=== PATIENT | male | born 1940 | race Caucasian/White ===

== ENCOUNTER → 2018-05-29 12:29 | Outpatient (CLI) | payer MEDICARE, OTHER, SELFPAY ==
--- NOTE | 2018-05-29 | DI.RAD.S_ITS ---
PROCEDURE: XR LUMBAR SPINE 2-3V INDICATIONS: RIGHT SHOULDER/BACK PAIN TECHNIQUE: Pre-views of the lumbar spine were acquired. COMPARISON: [facility], CR, L-SPINE 2-3 VIEWS, 11/17/2013, 15:38. [facility], CR, L-SPINE 2-3 VIEWS, 02/07/2011, 16:24. FINDINGS: Bones: 5 [id number] vertebrae are present. There is mildly levoscoliotic bony alignment. No vertebral body compression fractures. No suspicious bony lesions. Note is made of a moderate degree of degenerative disc height reduction at L34 and L4-5 and a mild degree of such degeneration at L5-S1. Facet osteoarthritis is moderately severe from L3 inferiorly. Soft tissues: Overlying bowel gas pattern is normal. No suspicious soft tissue calcifications. IMPRESSION: Slight levoscoliosis. 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 Moderate degenerative disc disease over this region also. Spinal and foraminal stenosis likely is present from L3 inferiorly. Dictated by: Bong Chatman M.D. on 05/29/2018 at 17:15 Approved by: Bong Chatman M.D. on 05/29/2018 at 17:16
--- NOTE | 2018-05-29 | DI.RAD.S_ITS ---
PROCEDURE: XR SHOULDER RT MIN 2V INDICATIONS: RIGHT SHOULDER/BACK PAIN TECHNIQUE: 3 views of the shoulder were acquired. COMPARISON: [facility], , SHOULDER MINIMUM 2 VIEW LEFT, 03/22/2014, 9:08. FINDINGS: Bones: No fractures or dislocations. No suspicious bony lesions. Visualized ribs appear intact. There is mild degenerative change of the right acromioclavicular joint. Soft tissues: Mild calcified plaque of the thoracic aorta. IMPRESSION: No acute osseous abnormality of the right shoulder. Dictated by: Doyle Murillo M.D. on 05/29/2018 at 15:07 Approved by: Doyle Murillo M.D. on 05/29/2018 at 15:15
== END ==
PROVIDERS: Family Provider Family Medicine; PCP Family Medicine; Visit Provider Family Medicine
DX: M54.5 Low back pain (principal); M25.511 Pain in right shoulder; M19.011 Primary osteoarthritis, right shoulder; M51.36 Other intervertebral disc degeneration, lumbar region; M51.37 Other intervertebral disc degeneration, lumbosacral region; M47.816 Spondylosis without myelopathy or radiculopathy, lumbar region; M47.817 Spondylosis without myelopathy or radiculopathy, lumbosacral region; I70.0 Atherosclerosis of aorta
CPT/HCPCS: 72100; 73030

== ENCOUNTER → 2018-07-29 13:01 | Outpatient (CLI) | payer MEDICARE, OTHER, SELFPAY ==
--- NOTE | 2018-07-29 | DI.US.S_ITS ---
PROCEDURE: US ABDOMEN COMPLETE INDICATIONS: UNSPECIFIED JAUNDICE TECHNIQUE: Real-time scanning was performed of the abdominal and retroperitoneal organs, with image documentation. COMPARISON: [facility], , ABD AORTA ANEURYSM SCREENING, 06/17/2014, 10:22. FINDINGS: Liver: Liver is diffusely increased in echogenicity. No focal hepatic abnormalities identified. Normal hepatic size. Gallbladder: Hydropic appearance measuring 11.3 cm in length. No gallstones identified. Normal gallbladder wall. Gallbladder sludge. No pericholecystic fluid. Negative sonographic Vick sign. Biliary ducts: Intrahepatic bile ducts are non-dilated. Extrahepatic bile duct caliber measures 9.2 mm. Normal is 6-7 mm or less in diameter, or 10 mm or less post-cholecystectomy. Pancreas: Visualized portions of the pancreas are sonographically normal. Spleen: Spleen is normal in size and homogeneous in echotexture. Kidneys: Kidneys are normal in size and echotexture. Right kidney measures 13.6 cm long; left kidney measures 14.0 cm long. No hydronephrosis or nephrolithiasis. No solid masses. Aorta: Visualized aorta is normal in caliber at less than 3 cm. Iliacs: Proximal common iliac arteries are normal in caliber at less than 2.5 cm. IVC: Intrahepatic inferior vena cava is patent. Miscellaneous: No free abdominal fluid. IMPRESSION: 1. Hydropic appearance of the gallbladder with gallbladder sludge. 2. Dilatation of the common bile duct measuring 9.2 mm. Recommend correlation with LFTs and if indicated MRCP could be performed for further assessment. Dictated by: Tristan FERRER Interpreted: Bong Chatman MD on 07/30/2018 at 12:15 Approved by: Bong Chatman M.D. on 07/30/2018 at 16:06
== END ==
PROVIDERS: Family Provider Family Medicine; PCP Family Medicine; Visit Provider Family Medicine
DX: R17 Unspecified jaundice (principal); K83.8 Other specified diseases of biliary tract
CPT/HCPCS: 76700

== ENCOUNTER → 2018-08-07 14:36 | Outpatient (CLI) | payer MEDICARE, OTHER, SELFPAY ==
--- NOTE | 2018-08-07 | DI.CT.S_ITS ---
PROCEDURE: CT CHEST W CON INDICATIONS: R/O METS, PANCREATIC CANCER TECHNIQUE: After the administration of intravenous contrast, 5 mm thick sections acquired from the pulmonary apices to the posterior costophrenic angles. 7 mm thick coronal and sagittal MIP reformats were acquired. For radiation dose reduction, the following was used: automated exposure control, adjustment of mA and/or kV according to patient size. COMPARISON: None. FINDINGS: Image quality: Excellent. Lungs and pleura: No acute air space opacities. No pleural effusions or pneumothorax. Central and peripheral airways are patent and normal in caliber. Mediastinum: Heart size is normal. No pericardial effusion. No mediastinal or hilar adenopathy by size criteria. Thoracic aorta and central pulmonary arteries are normal in size. Atherosclerotic ossifications in the thoracic aorta and coronary arteries are seen. 7 x 9 mm lobulated nodular density in posterior lateral aspect of right lower lobe is seen series 4 image 49. Scarring/atelectasis in posterior and anterior aspect of bilateral lung bases are noted. Esophagus is normal in caliber. No hiatal hernia. Bones and chest wall: No suspicious bony lesions. No vertebral body compression fractures. Degenerative disc disease throughout thoracic spine is seen. No axillary or supraclavicular adenopathy by size criteria. Thyroid gland is normal in size. A 1.1 cm hypodense nodule is seen involving lower pole of left thyroid lobe. Abdomen: Visualized portion of liver and spleen show no gross abnormality. Intrahepatic biliary ductal dilatation and dilatation of common bile that is seen. Soft tissue density mass involving the pancreatic head region is seen, and measures 3.5 x 2.1 cm in size, better evaluated on previous CT of abdomen and pelvis study. IMPRESSION: 1. 7 x 9 mm lobulated nodule in posterior-lateral aspect of right lower lobe, a metastatic lung nodule cannot be excluded. Bibasilar scarring/atelectasis. No pleural effusion or pneumothorax. 2. No gross mediastinal or hilar lymphadenopathy. 3. Pancreatic head mass as above, better evaluated on previous CT of abdomen and pelvis study. There is intrahepatic biliary ductal dilatation and common bile that dilatation. 4. Hypodense nodule involving lower pole of left thyroid lobe suggestive of nodular goiter. Dictated by: John Mcneil M.D. on 08/07/2018 at 16:57 Approved by: John Mcneil M.D. on 08/07/2018 at 17:03
--- NOTE | 2018-08-07 | DI.CT.S_ITS ---
PROCEDURE: CT PELVIS W CON INDICATIONS: R/O METS, PANCREATIC CANCER TECHNIQUE: After the administration of oral contrast and intravenous contrast, 5 mm thick sections acquired from the iliac crests to the symphysis. 5 mm thick coronal and sagittal reformats were acquired. For radiation dose reduction, the following was used: automated exposure control, adjustment of mA and/or kV according to patient size. COMPARISON: [facility], RG, CT ABD / PANCREAS W/WO CON, 08/06/2018, 14:39. FINDINGS: Image quality: Excellent. Peritoneum and bowel: Contrast enhanced bowel loops demonstrate normal wall thickness and caliber. No free fluid or air. Genitourinary: Bladder wall thickness is normal. Prominent prostate gland is seen with mild mass effect on floor of urinary bladder. Nodes and vessels: No gross iliac lymphadenopathy. Prominent lymph nodes in bilateral inguinal region are seen measures up to 1 cm in short axis diameter.. Iliac vessels demonstrate normal size and enhancement. Bones: No suspicious bony lesions. Miscellaneous: No inguinal hernias. IMPRESSION: 1. Borderline enlarged bilateral inguinal lymph nodes up to 1 cm in short axis diameter. No other pelvic lymphadenopathy. 2. Enlarged prostate gland with mild mass effect on floor of urinary bladder. No gross labral abnormality. 3. No bowel obstruction. No free fluid or free air. 4. No gross suspicious bone lesion. Dictated by: John Mcneil M.D. on 08/07/2018 at 16:54 Approved by: John Mcneil M.D. on 08/07/2018 at 16:56
[2018-08-07 15:14] LABS: Blood Urea Nitrogen 18 mg/dL (9-20); Estimated Glomerular Filt Rate > 60.0 mL/min (>60)
== END ==
PROVIDERS: Family Provider Family Medicine; PCP Family Medicine; Visit Provider Internal Medicine Hematology & Oncology
DX: C25.9 Malignant neoplasm of pancreas, unspecified (principal); R59.0 Localized enlarged lymph nodes; N40.0 Benign prostatic hyperplasia without lower urinary tract symptoms; R91.1 Solitary pulmonary nodule; E04.1 Nontoxic single thyroid nodule
CPT/HCPCS: 36415; 71260; 72193; 82565; 84520; Q9967

== ENCOUNTER → 2018-11-17 08:45 | Outpatient (CLI) | payer MEDICARE, OTHER, SELFPAY ==
--- NOTE | 2018-11-17 | DI.RAD.S_ITS ---
PROCEDURE: XR CHEST 2V INDICATIONS: PNEUMONIA TECHNIQUE: 2 views of the chest were acquired. COMPARISON: [facility], CT, CT CHEST W CON, 08/07/2018, 16:06. [facility], CR, CHEST 2 VIEW, 09/23/2013, 10:19. FINDINGS: Surgical changes and devices: Right chest port with the tip projecting in the mid SVC. Lungs and pleura: 1.5 x 2.9 cm ovoid high density projecting in the left lung base. Elsewhere, no acute consolidation. No pleural effusion or pneumothorax. Lungs appear hyperinflated. Mediastinum: Mediastinal contours are normal. Heart size is stable. Bones and chest wall: No suspicious bony abnormalities. Soft tissues appear unremarkable. IMPRESSION: Ovoid opacity projecting in the left lung base, possibly anterior rib shadow although cannot exclude pulmonary nodule or potentially bronchopneumonia. As clinically warranted, recommend short interval followup chest radiographs after treatment for further assessment and if this persists (or if immediate evaluation required), recommend noncontrast chest CT to assess for pulmonary nodule. Dictated by: Blas Ibarra M.D. on 11/17/2018 at 14:08 Approved by: Blas Ibarra M.D. on 11/17/2018 at 14:12
== END ==
PROVIDERS: PCP Family Medicine; Visit Provider Family Medicine
DX: J18.8 Other pneumonia, unspecified organism (principal)
CPT/HCPCS: 71046

== ENCOUNTER 2019-05-04 10:26 | Emergency (ER) | payer MEDICARE, OTHER, SELFPAY ==
[2019-05-04 10:30] VITALS: BP 82/49; PULSE 70; RESP 12; TEMP 37.1; O2SAT 92
--- NOTE | 2019-05-04 12:35 | PC.NURSE ---
Pt's power port in R chest accessed using sterile technique. Pt tolerated well. Labs collected.
[2019-05-04 13:05] LABS: INR 1.2 (0.9-1.3); Prothrombin Time 14.3 SECONDS (10.1-12.7)
[2019-05-04 13:06] LABS: Add Manual Diff / Slide Review NO; Basophils Absolute Auto 0 /uL (0-100); Basophils Percent Auto 0.5 % (0-2); Eosinophils Absolute Auto 0 /uL (0-450); Eosinophils Percent Auto 3.1 % (2-4); Hematocrit 29.9 % (41-53); Hemoglobin 10.3 g/dL (13.5-17.5); Lymphocytes Absolute Auto 400 /uL (1100-4500); Mean Corpuscular HGB Conc 34.5 % (30-36); Mean Corpuscular Hemoglobin 31.4 PG (26-34); Monocytes Absolute Auto 200 /uL (0-900); Monocytes Percent Auto 17.9 % (3-14); Neutrophils Absolute Auto 600 /uL (1500-7000); Neutrophils Percent Auto 48.5 % (50-75); Platelet Count 202 X10^3/uL (150-400); Red Blood Cell Count 3.29 X10^6/uL (4.5-5.9)
[2019-05-04 13:07] LABS: PTT Partial Thromboplastin Tim 28 SECONDS (26.4-36.2)
[2019-05-04 13:09] LABS: Alanine Aminotransferase 15 IU/L (<50); Albumin 2.9 g/dL (3.5-5.0); Albumin Globulin Ratio 1.2 (1.0-2.8); Alkaline Phosphatase 39 U/L (38-126); Aspartate Aminotransferase 15 IU/L (17-59); BUN Creatinine Ratio 17.5 (6-22); Bilirubin Total 0.9 mg/dL (0.2-1.3); Blood Urea Nitrogen 14 mg/dL (9-20); Calcium 7.7 mg/dL (8.4-10.2); Carbon Dioxide 20 mmol/L (22-32); Chloride 103 mmol/L (98-107); Estimated Glomerular Filt Rate > 60.0 mL/min (>60); Globulin 2.5 g/dL (1.7-4.1); Glucose 150 mg/dL (80-110); HEMOLYSIS < 15 (0-50); Potassium 2.8 mmol/L (3.4-5.1); Sodium 134 mmol/L (137-145); Total Protein 5.4 g/dL (6.3-8.2)
[2019-05-04 13:28] LABS: White Blood Cell Count 1.3 X10^3/uL (4.5-11.0)
--- NOTE | 2019-05-04 13:46 | ED_ITS ---
HPI - Weakness General Chief complaint: Weakness Stated complaint: dehydrated research study PT Prisc[facility] Time Seen by Provider: 05/04/19 11:59 Source: patient and family Mode of arrival: Wheelchair History of Present Illness HPI Narrative: Patient comes emergency department complaining of feeling weak and dehydrated. The patient is currently undergoing chemotherapy every other week for pancreatic cancer, and has undergone Whipple procedure. He states he has lost 45 lb over the last 4 months, and has been in treatment since July of this year. He states that he has had a hard time recovering since his last chemotherapy treatment 2 weeks ago. He states he was supposed to go to [facility] today for another treatment, but was to weak and sick to be able to tolerate the drive. Patient has been drinking Gatorade at home and has been struggling to find food appetite is in. He has been drinking and ensure type drink mixed with banana and whey protein. He states that he just feels very tired. Patient denies fevers or chills. No cough or shortness of breath better new. No chest pain. He has been having abdominal cramping since the last chemotherapy treatment, but this seems to be improving a little bit. No other complaints at this time. Related Data Home Medications Medication Instructions Recorded Confirmed cholecalciferol (vitamin D3) 2,000 unit PO DAILY 05/04/19 05/04/19 [Vitamin D3] diphenoxylate-atropine [Lomotil] 2 tab PO DAILY 05/04/19 05/04/19 dutasteride-tamsulosin 1 cap PO DAILY 05/04/19 05/04/19 fenofibric acid (choline) 135 mg PO DAILY 05/04/19 05/04/19 [Trilipix] hydrochlorothiazide 25 mg PO DAILY 05/04/19 lidocaine-prilocaine 1 applic TOPICAL DIRECTED 05/04/19 05/04/19 clbark-jcjiqvud-hulcyry [Creon] 1 cap PO TID 05/04/19 05/04/19 lisinopril 40 mg PO DAILY 05/04/19 05/04/19 megestrol 40 mg PO BID 05/04/19 05/04/19 metformin mg 05/04/19 omeprazole 20 mg PO BID 05/04/19 05/04/19 oxycodone 5 mg PO Q4H PRN 05/04/19 05/04/19 simvastatin 60 mg PO BEDTIME 05/04/19 05/04/19 sitagliptin [Januvia] 100 mg PO DAILY 05/04/19 05/04/19 Review of Systems Constitutional Constitutional: Denies chills, Denies fatigue, Denies fever(s), Denies frequent falls, Denies lethargy and Reports weakness Eyes Eyes: Denies change in vision, Denies eye discharge, Denies irritation and Denies loss of vision ENT Ears, Nose, Mouth, and Throat: Denies change in voice, Denies dizziness, Denies neck pain, Denies sore throat and Denies throat swelling Cardiovascular Cardiovascular: Denies chest pain, Denies irregular heart rhythm, Denies l ightheadedness, Denies palpitations, Denies dyspnea, Denies dyspnea on exertion and Denies orthopnea Respiratory Respiratory: Denies cough, Denies dyspnea, Denies dyspnea on exertion and Denies wheezing Gastrointestinal Gastrointestinal: Reports abdominal pain (Cramping), Denies change in bowel habits, Denies diarrhea, Denies nausea and Denies vomiting Genitourinary Genitourinary: Denies hematuria, Denies flank pain, Denies urinary incontinence and Denies urinary urgency Musculoskeletal Musculoskeletal: Denies back pain, Denies muscle weakness, Denies neck pain, Denies numbness and Denies tingling Integumentary/Breasts Skin/Breast: Denies pruritus, Denies erythema, Denies rash and Denies wounds Neurologic Neurologic: Denies behavioral changes, Denies confusion, Denies dizziness, Denies frequent falls, Denies loss of vision, Denies numbness, Denies tingling and Reports weakness Psychiatric Psychiatric: Denies anxiety, Denies behavioral changes, Denies confusion, Denies depression, Denies homicidal ideation and Denies suicidal ideation Endocrine Endocrine: Denies fatigue, Denies flushing and Denies palpitations Hematologic/Lymphatic Hematologic/Lymphatic: Denies easy bruising Allergic/Immunologic Allergic/Immunologic: Denies urticaria, Denies throat swelling and Denies wheezing Patient History Medical History (Updated 05/04/19 @ 16:44 by Christina Valdez MD) Pancreatic cancer (Acute) Surgical History (Updated 05/04/19 @ 14:43 by Christina Valdez MD) History of pancreatic surgery (Acute) Social History Smoking Status: Never smoker Substance Use Type: does not use Exam Initial Vital Signs Initial Vital Signs: Vital Signs Temperature 98.8 F 05/04/19 10:30 Pulse Rate 70 05/04/19 10:30 Respiratory Rate 12 05/04/19 10:30 Blood Pressure 82/49 L 05/04/19 10:30 Pulse Oximetry 92 05/04/19 10:30 Const General: cooperative and well developed Nutritional Appearance: thin Orientation: alert, awake, oriented x3 and not confused HENNC Head: normocephalic and atraumatic Ears: external ears normal Nose: external nose normal and No nasal discharge Face and sinus: face symmetric and No dry mucous membranes Mouth: oral mucosae normal and moist mucous membranes Teeth and gingiva: dentition normal Eyes General: appearance normal, both eyes and all related structures Eyelids: eyelids normal Conjunctivae: conjunctivae normal Sclera: sclerae normal Pupils: PERRL EOM: EOM intact bilaterally Neck Neck: normal visual inspection, trachea midline, No lymphadenopathy, No midline deformity and No JVD Lymphatic: No lymphedema Chest Chest: normal inspection of the chest Resp Effort & Inspection: normal respiratory effort, able to speak in complete sentences, no respiratory distress and no use of accessory muscles Auscultation: clear to auscultation bilaterally, no rales, no rhonchi and no wheezes Cardio Rate: regular rate Rhythm: regular rhythm Heart Sounds: no click, no gallops, no murmurs and no rubs Pulses: normal peripheral pulses GI Inspection: non-distended Palpation: soft, no hepatosplenomegaly, No guarding, No pulsatile mass and No tender Auscultation: normal bowel sounds Back/Spine/Pelvis Back: No CVA tenderness Cervical Spine: cervical ROM normal and No pain with cervical ROM Thoracic/Lumbar Spine: thoracic and lumbar spine normal to inspection Skin General: no rashes or lesions noted, No jaundice and No petechiae Neuro General: alert, oriented x3, gait normal and no focal motor deficits Speech: speech normal Extrem General: full ROM, no clubbing, cyanosis or edema, no pedal edema and no calf tenderness Psych Appearance: well kempt Mental Status: mental status grossly normal Attitude: cooperative Thought Content: normal and suicidality Judgment: judgment good Course Course Course Narrative: Patient was given a L bolus of 0.9 normal saline and worked up with laboratory studies. He was found to have white blood cell count of 1.3, but labs were unremarkable otherwise. Patient was found to be feeling better after fluids. I ordered records from [facility], but no recent white blood cell count was available, and it was unclear what the patient's most recent baseline white blood cell count was. However, patient was afebrile and feeling quite a bit better after fluids, and overall, was well-appearing in acute sense. I discussed with the patient and that they will need to call his oncologist's office tomorrow to reschedule the patient's chemotherapy appointment. If the patient should develop fever or worsening symptoms in any way, he should return to the emergency department immediately. The patient is actually feeling a little hungry, and states she will feed him at home. We have discussed home management of symptoms, the need for follow-up, and the usual indications for return. Orders Ordered: Discontinued Medications Heparin Sodium (Porcine) (Heparin Lock Port) 500 unit IV PRN STA Stop: 05/04/19 16:51 Last Admin: 05/04/19 16:55 Dose: 500 unit Documented by: SU Sodium Chloride (Normal Saline 0.9%) 1,000 mls @ 1,000 mls/hr IV BOLUS ONE Stop: 05/04/19 14:46 Last Infusion: 05/04/19 15:22 Dose: 0 mls/hr Documented by: Admin: 05/04/19 14:22 Dose: 1,000 mls/hr Documented by: SU Vital Signs Vital signs: Vital Signs - 8 hr 05/04/19 10:30 Temperature 98.8 F Pulse Rate 70 Respiratory Rate 12 Blood Pressure 82/49 L Pulse Oximetry 92 MDM - Weakness Medical Records Attestation: I reviewed the patient's medical records. Lab Data Attestation: I reviewed the patient's lab results. Result diagrams: 05/04/19 12:35 05/04/19 12:35 Labs: Lab Results 05/04/19 05/04/19 05/04/19 Range/Units 12:35 12:35 12:35 WBC 1.3 L* (4.5-11.0) X10^3/uL RBC 3.29 L (4.5-5.9) X10^6/uL Hgb 10.3 L (13.5-17.5) g/dL Hct 29.9 L (41-53) % MCV 91.0 (80-100) fL MCH 31.4 (26-34) PG MCHC 34.5 (30-36) % RDW 15.0 H (11.6-14.8) % Plt Count 202 (150-400) X10^3/uL Neut % (Auto) 48.5 L (50-75) % Lymph % (Auto) 30.0 (25-40) % Elmore % (Auto) 17.9 H (3-14) % Eos % (Auto) 3.1 (2-4) % Baso % (Auto) 0.5 (0-2) % Neut # (Auto) 600 L (8905-2804) /uL Lymph # (Auto) 400 L (4186-4641) /uL Elmore # (Auto) 200 (0-900) /uL Eos # (Auto) 0 (0-450) /uL Baso # (Auto) 0 (0-100) /uL PT 14.3 H (10.1-12.7) SECONDS INR 1.2 (0.9-1.3) APTT 28 (26.4-36.2) SECONDS Sodium 134 L (137-145) mmol/L Potassium 2.8 L (3.4-5.1) mmol/L Chloride 103 (98-107) mmol/L Carbon Dioxide 20 L (22-32) mmol/L BUN 14 (9-20) mg/dL Creatinine 0.80 (0.66-1.25) mg/dL Estimated GFR > 60.0 (>60) mL/min BUN/Creatinine Ratio 17.5 (6-22) Glucose 150 H (80-110) mg/dL Calcium 7.7 L (8.4-10.2) mg/dL Total Bilirubin 0.9 (0.2-1.3) mg/dL AST 15 L (17-59) IU/L ALT 15 (<50) IU/L Alkaline Phosphatase 39 (38-126) U/L Total Protein 5.4 L (6.3-8.2) g/dL Albumin 2.9 L (3.5-5.0) g/dL Globulin 2.5 (1.7-4.1) g/dL Albumin/Globulin Ratio 1.2 (1.0-2.8) ECG Data Attestation: I personally reviewed and interpreted this ECG as follows: (See below) Interpretation: Twelve lead EKG performed May 04, 2019 at 11:38 a.m., as follows: Irregular ventricular rhythm with a rate of 92 beats per minute MS interval 167 milliseconds QTC interval 430 millisecond QRS duration 113 millisecond No ectopy Interpretation: Normal sinus rhythm; septal CA, probably old; no signs of acute ischemia; abnormal EKG as interpreted by ED MD. Discharge Plan Departure Patient Disposition: Home Clinical Impression: Dehydration Discharge Date/Time: 05/04/19 17:14 Instructions: DI for Dehydration -- Adult Activity Restrictions/Additional Instructions: Your white blood cell count is low, which is not surprising, given the chemotherapy you are on. You have been rehydrated with IV fluids today. Please call your oncologist's office to reschedule your chemotherapy treatment. Prescriptions: No Action simvastatin 20 mg tablet 60 mg PO BEDTIME RF: 0 megestrol 40 mg tablet 40 mg PO BID RF: 0 omeprazole 20 mg capsule,delayed release(DR/EC) 20 mg PO BID RF: 0 hydrochlorothiazide 25 mg tablet 25 mg PO DAILY RF: 0 lisinopril 40 mg tablet 40 mg PO DAILY RF: 0 Januvia 100 mg tablet 100 mg PO DAILY RF: 0 Creon 24,000-76,000 -120,000 unit capsule,delayed release(DR/EC) 1 cap PO TID RF: 0 dutasteride-tamsulosin 0.5-0.4 mg capsule, ER multiphase 24 hr 1 cap PO DAILY RF: 0 metformin 500 mg tablet RF: 0 cholecalciferol (vitamin D3) [Vitamin D3] 2,000 unit Capsule 2,000 unit PO DAILY RF: 0 fenofibric acid (choline) [Trilipix] 135 mg Capsule,Delayed Release(Dr/Ec) 135 mg PO DAILY RF: 0 diphenoxylate-atropine [Lomotil] 2.5-0.025 mg Tablet 2 tab PO DAILY RF: 0 lidocaine-prilocaine 2.5-2.5 % Cream 1 applic topical DIRECTED RF: 0 oxycodone 5 mg tablet 5 mg PO Q4H PRN (Reason: pain) RF: 0 Referrals: Eulalio rCawford MD [Primary Care Provider] -
[2019-05-04 13:47] VITALS: BP 105/66; PULSE 94; RESP 22; O2SAT 98
[2019-05-04 14:00] VITALS: BP 106/50; PULSE 92; RESP 16; O2SAT 95
[2019-05-04] MEDS: SODIUM CHLORIDE 0.9% 1,000 ML 1000 ML IV (14:22)
--- NOTE | 2019-05-04 15:08 | PC.NURSE ---
Pt given ice chips
[2019-05-04 15:30] VITALS: BP 123/52
[2019-05-04 16:59] VITALS: BP 124/56; PULSE 96; RESP 13; O2SAT 98
== END 2019-05-04 17:14 | disposition home or self-care (01) ==
PROVIDERS: Emergency Provider Emergency Medicine; PCP Family Medicine
DX: E86.0 Dehydration (principal); R79.89 Other specified abnormal findings of blood chemistry; R94.31 Abnormal electrocardiogram [ECG] [EKG]; Z98.890 Other specified postprocedural states; C25.9 Malignant neoplasm of pancreas, unspecified
CPT/HCPCS: 80053; 85025; 85610; 85730; 93005; 93010; 96360; 99283; 99284; J1642

== ENCOUNTER → 2019-10-29 13:00 | Oncology outpatient (ONC) | payer MEDICARE, OTHER, SELFPAY ==
--- NOTE | 2018-10-23 16:56 | PC.NURSE ---
Pt was AOx3 no signs of distress noted, steady gate, interacted appropriately with staff. 5-fu CADD pump d/c'd per protocol, gave pump hardware back to pt in chemo bag and disposed of chemo cassette per protocol. Port de-accessed per protocol-brisk blood return, heparinized.
--- NOTE | 2019-04-21 12:52 | ONC.SCHED ---
This patient called twice and I returned his calls twice. I get voicemail and can't seem to connect regarding a pump disconnect.
[2019-04-22 14:30] VITALS: BP 139/70; PULSE 85; RESP 18; TEMP 36.6
--- NOTE | 2019-04-22 14:31 | PC.NURSE ---
Pt in clinic today for pump disconnect. Denies chest pain and SOB. Speech clear. Face and body relaxed. Denies N/V. No s/s of acute distress noted. Pump d/c w/o issue. Port flushed per protocol. Pump returned to pt.
--- NOTE | 2019-05-27 16:11 | PC.NURSE ---
pt states he tolerated infusion well. pump disconnected.
--- NOTE | 2019-06-10 16:09 | PC.NURSE ---
CADD PUMP DISCONNECT AND DEACCESS, PATIENT WITH NO ADVERSE SYMPTOMS, CARTRIDGE EMPTY.
[2019-07-29 16:26] VITALS: BP 137/66; PULSE 77; RESP 18; TEMP 36.6; O2SAT 97
--- NOTE | 2019-07-29 16:27 | PC.NURSE ---
Pump Disconnect Patient stated this was his last chemo infusion. Confirmed pump infusion was complete. Port flushed and deaccessed.
--- NOTE | 2019-10-12 15:06 | ONC.MSW ---
Description: Initial Referral Navigation Reason for Referral: Metastatic Pancreatic Cancer Activity: This navigator/METAL MACHINIST spoke with pt at length last week in trying to locate his referral. Called Dr. Laguna's office and requested that they re-fax. Received referral today. Pt is being referred to continue his treatments for metastatic pancreatic cancer. Forwarded to scheduling for next urgent initial consult time, 10/21 at 10:00am. Pt will need to be called to discuss and confirm this time.
[2019-10-22 10:23] VITALS: BP 131/71; PULSE 90; RESP 18; TEMP 36.6; O2SAT 98
--- NOTE | 2019-10-22 10:35 | P.CONONC_ITS ---
History of Present Illness - Data of Consult Patient: new to practice Consult date: 10/22/19 Requesting Physician: Dr. Keegan Laguna MD Primary Care Provider: Eulalio Crawford MD - Consult Narrative Reason for consult: Pancreatic cancer, recurrent Narrative: Calvin Weaver is a 79 year old male with recurrent pancreatic cancer. He was referred by Dr. Oglesby from [facility] for continuation of care, more specifically for re-initiation of chemotherapy with gemcitabine and Abraxane. I have not received the full medical records. Based on limited medical records from [facility] and patient's own account, patient presented in August 2018 with painless jaundice. That subsequently led to the diagnosis of pancreatic carcinoma. Patient has been receiving care totally at the [facility]. Patient apparently was enrolled into a clinical trial called Ipsen. He completed all elements of protocol directed therapy, including pre operative chemotherapy, Whipple procedure in November 2018 and postoperative chemotherapy. But in 08/2019, the patient was found to have an elevated CA 19-9 along with a lesion at T11. This was biopsied early in August 2019 and unfortunately found to be metastatic disease. In addition patient has developed lower back pain in the presacral region but denies other acute abdominal pain or constitutional symptoms. Patient was evaluated on 09/29/[address] Oglesby. The patient was found to have a CA 19-9 approximately 2650 in comparison with value of 500 in early August [address]-PET showed no uptake at the T11 biopsy site or bones in general, but did show multiple foci of mildly increased uptake along the distal sigmoid colon and rectum of concern for peritoneal metastasis. Also noted is a focus of uptake along the distal right common iliac which may represent a common iliac node or additional peritoneal implant. No other disease sites are seen. Dr. Laguna recommended [place]-initiation of gemcitabine and abraxane. Clinically, patient reported that he is doing good apart from the pain. But his said the patient is tired a lot. Patient himself thought that was due to multiple medications. He is having poor appetite and is taking appetite enhancer. Patient said not his not able to eat large portions. Patient in addition is having some shortness of breath sometimes especially during exertion. He denies cough. He denies fever or chills. He is having abdominal pain mild. He said he is having back and forth constipation and diarrhea. He has lost lot of weight. He weighed 210 in July 2017. Now he weighed 150. CC: Moises Browning MD Home Medications and Allergies Home Medications Medication Instructions Recorded Confirmed Type [id number] [Creon] 1 cap PO TID 05/04/19 10/22/19 History lisinopril 40 mg PO DAILY 05/04/19 10/22/19 History metformin 1,000 mg BID 05/04/19 10/22/19 History omeprazole 20 mg PO BID 05/04/19 10/22/19 History oxycodone 5 mg PO Q4H PRN 05/04/19 10/22/19 History simvastatin 60 mg PO BEDTIME 05/04/19 10/22/19 History sitagliptin [Januvia] 100 mg PO DAILY 05/04/19 10/22/19 History amlodipine 5 mg PO DAILY 10/22/19 10/22/19 History aspirin 81 mg PO DAILY 10/22/19 10/22/19 History dutasteride 0.5 mg PO DAILY 10/22/19 10/22/19 History hyoscyamine sulfate 0.125 mg PO BID-QID PRN 10/22/19 10/22/19 History loperamide 2 mg PO Q4H PRN 10/22/19 10/22/19 History meloxicam 7.5 mg PO DAILY 10/22/19 10/22/19 History tamsulosin 0.4 mg PO DAILY 10/22/19 10/22/19 History Allergies Allergy/AdvReac Type Severity Reaction Status Date / Time Penicillins Allergy Verified 10/22/19 10:34 Sulfa (Sulfonamide Allergy Verified 10/22/19 10:34 Antibiotics) Medical History - Medical, Surgical, Family History Medical History: Medical History (Last Updated 10/22/19 @ 10:57 by Moises Browning MD) Diabetes Hyperlipidemia Hypertension Pancreatic cancer Surgical History: Surgical History (Last Updated 05/04/19 @ 14:43 by Christina Valdez MD) History of pancreatic surgery - Social History Smoking Status: Former smoker (stoppped long time ago.) Substance Use Type: does not use Alcohol Intake: never Review of Systems - Patient Self-Reported Symptoms SR Constitution: Fatigue/Malaise SR respiratory issues: Shortness of breath SR Skin issues: Hair loss or scalp prob SR Gastrointestinal issues: Diarrhea, Constipation SR Genitourinary issues: Frequent urination SR Musculoskeletal issues: Joint pain or swelling, Muscle weakness, Back or neck pain, Cold hands or feet All systems PM: reviewed and no additional remarkable complaints except as stated (those mentioned in HPI and SR above.) Exam Vital signs: Last Vital Signs Temp 98 F 10/22/19 10:23 Pulse 90 10/22/19 10:23 Resp 18 10/22/19 10:23 BP 131/71 10/22/19 10:23 Pulse Ox 98 10/22/19 10:23 Narrative: ECOG 1 Vitals above reviewed Constitutional: WDWN, well nourished, and well groomed. NAD. Pleasant and cooperative. HEENT: NCAT, EOMI, PERRLA. Anicteric sclera. Neck: Supple and symmetrical, no palpable masses. No palpable thyromegaly. Respiratory: No use of accessory muscles. CTAB, no wheezes. Cardiovascular: RRR, S1 and S2 normal, no M/G/R. No edema of lower extremities. Abdomen: Soft, mild tender without specific location, no palpable masses. No palpable hepatosplenomegaly. No hernia. Lymphatic: no palpable palpable lymph nodes in the neck, axillae, or groins. Musculoskeletal: normal gait and station Skin: No rashes, lesions, or ulcers. No induration, or subcutaneous nodules. Neurological: CN II-XII grossly intact. No focal motor or sensory deficit. Psychiatric: Normal judgment and insight. AOx3. Normal memory (recent and remote). Normal mood and affect. Results - Labs Reviewed in HPI - Imaging Additional studies: Procedures Closed [endoscopic] biopsy of large intestine (05/19/13) Esophagogastroduodenoscopy [EGD] with closed biopsy (05/19/13) Assessment and Plan (1) Pancreatic cancer Overview: 79-year-old gentleman with recurrent metastatic pancreatic carcinoma was referred here to continue chemotherapy with gemcitabine and Abraxane. He was diagnosed with pancreatic cancer in August 2018. Patient was enrolled in clinical Ipsen trial and underwent orestes-operative chemotherapy. Patient under went Whipple procedure in November 2018. Unfortunately in August 2019, he was found to have metastatic recurrence in the T11 vertebra confirmed by biopsy and intra- abdominal metastasis evident on PET scan. Assessment: I talked with the patient and patient's that I will proceed and schedule the chemotherapy as recommended by Dr. Oglesby from [facility]. I briefly touched base with the patient that the chemotherapy is associated with but not limited to bone marrow suppression, hair loss, nausea vomiting, fatigue, etc.. Patient voiced understanding. As far as pain medication is concerned, patient would like to continue follow-up with his primary care provider. Plan: [place]/Abraxane C1# next (10/27/2019) Chemotherapy teaching Records from (2) Port-A-Cath in place Flush every 4-6 weeks
--- NOTE | 2019-10-22 12:40 | ONC.MSW ---
Description: First F/F Visit Activity: Met with pt/spouse for first f/f visit. Pt expresses feeling anxious to begin chemotherapy, he c/o constant pain in his back at the location of the bone mets. Pt and spouse state that they have good, local support available. BOARD ATTENDANT explained the ongoing availability of support, assistance, and assessed immediate needs. No additional needs identified at this time. Will continue to monitor once his treatment plan has been established.
[2019-10-27 10:45] LABS: Add Manual Diff / Slide Review NO; Basophils Absolute Auto 0 /uL (0-100); Basophils Percent Auto 0.6 % (0-2); Eosinophils Absolute Auto 100 /uL (0-450); Eosinophils Percent Auto 1.3 % (2-4); Hematocrit 34.9 % (41-53); Hemoglobin 11.7 g/dL (13.5-17.5); Lymphocytes Absolute Auto 1000 /uL (1100-4500); Lymphocytes Percent Auto 20.7 % (25-40); Mean Corpuscular HGB Conc 33.5 % (30-36); Mean Corpuscular Hemoglobin 30.5 PG (26-34); Mean Corpuscular Volume 91.3 fL (80-100); Monocytes Absolute Auto 300 /uL (0-900); Monocytes Percent Auto 6.7 % (3-14); Neutrophils Absolute Auto 3500 /uL (1500-7000); Neutrophils Percent Auto 70.7 % (50-75); Platelet Count 235 X10^3/uL (150-400); Red Blood Cell Count 3.82 X10^6/uL (4.5-5.9); White Blood Cell Count 4.9 X10^3/uL (4.5-11.0)
[2019-10-27 10:56] LABS: Alanine Aminotransferase 14 IU/L (<50); Albumin 3.8 g/dL (3.5-5.0); Albumin Globulin Ratio 1.4 (1.0-2.8); Alkaline Phosphatase 54 U/L (38-126); Aspartate Aminotransferase 19 IU/L (17-59); BUN Creatinine Ratio 25.4 (6-22); Bilirubin Total 0.6 mg/dL (0.2-1.3); Blood Urea Nitrogen 16 mg/dL (9-20); Calcium 9.4 mg/dL (8.4-10.2); Carbon Dioxide 21 mmol/L (22-32); Chloride 108 mmol/L (98-107); Estimated Glomerular Filt Rate > 60.0 mL/min (>60); Globulin 2.8 g/dL (1.7-4.1); Glucose 139 mg/dL (80-110); HEMOLYSIS < 15 (0-50); Potassium 3.3 mmol/L (3.4-5.1); Sodium 139 mmol/L (137-145); Total Protein 6.6 g/dL (6.3-8.2)
[2019-10-27] MEDS: KCL 20 MEQ IN NS 1,000 ML 500 MEQ IV (11:35)
--- NOTE | 2019-10-27 13:47 | PC.NURSE ---
Addendum entered by Sharon Murphy R.N. 10/27/19 14:00: Pt declined chemo teaching while in clinic. According to pt he is very familiar with these medications and has been receiving them at [facility] for months. Original Note: Pt seen in clinic today for labs, chemo teaching, and poss first treatment. Pt reports multiple episodes of diarrhea starting early this morning, pt reports taking anti-diarrheal medication with some relief . Pt also reports pain r/t diagnoses. Pt currently taking 5mg oxycodone Q4-6 hrs PRN pain. New RX for pain medication obtained from Dr. Browning with intent to better control pt's pain. After reviewing labs, IV fluid and potassium ordered per Dr. Browning. Chemo held today, plan to return on to reevaluate labs and possibly begin treatment. Pt aware and agreeable to plan. Pt denies chest pain and SOB. Denies N/V. Denies lightheadedness and dizziness. RR equal and unlabored, steady on feet. Speech clear. Interacting with staff appropriately, no s/s of acute distress noted during infusion.
[2019-10-28 08:22] LABS: Cancer (Carbohydrate) Ag 19-9 1240 U/mL (0-35)
[2019-10-29 12:52] LABS: Add Manual Diff / Slide Review NO; Basophils Absolute Auto 0 /uL (0-100); Basophils Percent Auto 0.6 % (0-2); Eosinophils Absolute Auto 100 /uL (0-450); Eosinophils Percent Auto 1.4 % (2-4); Hematocrit 36.1 % (41-53); Lymphocytes Absolute Auto 1300 /uL (1100-4500); Lymphocytes Percent Auto 20.2 % (25-40); Mean Corpuscular HGB Conc 33.3 % (30-36); Mean Corpuscular Hemoglobin 30.5 PG (26-34); Mean Corpuscular Volume 91.6 fL (80-100); Monocytes Absolute Auto 400 /uL (0-900); Monocytes Percent Auto 6.2 % (3-14); Neutrophils Absolute Auto 4700 /uL (1500-7000); Neutrophils Percent Auto 71.6 % (50-75); Platelet Count 271 X10^3/uL (150-400); Red Blood Cell Count 3.94 X10^6/uL (4.5-5.9); White Blood Cell Count 6.6 X10^3/uL (4.5-11.0)
[2019-10-29 13:02] LABS: Alanine Aminotransferase 15 IU/L (<50); Albumin 3.9 g/dL (3.5-5.0); Albumin Globulin Ratio 1.3 (1.0-2.8); Alkaline Phosphatase 63 U/L (38-126); Aspartate Aminotransferase 19 IU/L (17-59); BUN Creatinine Ratio 25.8 (6-22); Bilirubin Total 0.7 mg/dL (0.2-1.3); Blood Urea Nitrogen 16 mg/dL (9-20); Calcium 9.3 mg/dL (8.4-10.2); Carbon Dioxide 22 mmol/L (22-32); Chloride 106 mmol/L (98-107); Estimated Glomerular Filt Rate > 60.0 mL/min (>60); Globulin 2.9 g/dL (1.7-4.1); Glucose 139 mg/dL (80-110); HEMOLYSIS < 15 (0-50); Potassium 3.7 mmol/L (3.4-5.1); Sodium 138 mmol/L (137-145); Total Protein 6.8 g/dL (6.3-8.2)
[2019-10-29] MEDS: DEXAMETHASONE 10 MG/ML VIAL 8 MG IV (13:43)
[2019-10-29] MEDS: ONDANSETRON 8 MG in SODIUM CHLORIDE 0.9% 50 ML 216 ML IV (13:44)
[2019-10-29] MEDS: SODIUM CHLORIDE 0.9% 100 ML 30 ML IV (13:45)
[2019-10-29 13:50] VITALS: BP 147/84; PULSE 86; RESP 18; TEMP 36.8; O2SAT 97
--- NOTE | 2019-10-29 14:06 | PC.NURSE ---
CHEMO TEACHING- ANNETTEJERRI NIKOLEChano 10/29/2019- Chemotherapy education: Written materials provided from [facility] Chemo teaching done chair side with SO present. Handout given about common side effects and self care and when to seek emergency medical treatment vs when to f/u with clinic within 24 hours. Written information was given on the following topics: Low blood counts- Myelosuppression Hair loss nausea, vomiting, and diarrhea decreased appetite insomnia mouth sores constipation peripheral neuropathy chemo brain fatigue fever myalgias When to contact your doctor or health care provider: Contact your health care provider immediately, day or night, if you should experience any of the following symptoms: Fever of 100.4? F (38? C) or higher, chills (possible signs of infection) Shortness of breath, wheezing, difficulty breathing, closing up of the throat, swelling of facial features, hives (possible allergic reaction). The following symptoms require medical attention, but are not an emergency. Contact your health care provider within 24 hours of noticing any of the following: Nausea (interferes with ability to eat and unrelieved with prescribed medication). Vomiting (vomiting more than 4-5 times in a 24 hour period). Diarrhea (4-6 episodes in a 24-hour period). Constipation unrelieved by laxative use. Unusual bleeding or bruising Black or tarry stools, or blood in your stools. Blood in the urine. Extreme fatigue (unable to carry on self-care activities). New or worsening symptoms of peripheral neuropathy. Swelling, redness and/or pain in one leg or arm and not the other. Swelling of the feet or ankles. Sudden weight gain. Signs of infection such as redness or swelling, pain on swallowing, coughing up mucous, or painful urination. Unable to eat or drink for 24 hours or have signs of dehydration: tiredness, thirst, dry mouth, dark and decrease amount of urine, or dizziness. All pt's questions answered at this time, chemo consent signed. Pt verbalizes understanding of treatment plan.
[2019-10-29] MEDS: SODIUM CHLORIDE 0.9% IV ×2 (14:37→15:44)
[2019-10-29] MEDS: PACLITAXEL PROTEIN BOUND IV (14:37)
[2019-10-29] MEDS: GEMCITABINE HCL IV (15:44)
[2019-10-30 05:36] LABS: Cancer (Carbohydrate) Ag 19-9 1369 U/mL (0-35)
--- NOTE | 2019-11-03 14:04 | ONC.MSW ---
Description: T/C Activity: Attempted to call pt's re: her wanting information about caregiving support, however no answer, and the mailbox was full. Will try again later this week.
--- NOTE | 2019-11-12 12:28 | ONC.SCHED ---
patient's called to let me know he is on hospice/Dr Nolasco got them set up and he will not be returning here
--- NOTE | 2020-03-08 10:33 | ONC.MSW ---
*Sent bereavement card.
== END ==
PROVIDERS: Family Provider Family Medicine; PCP Family Medicine; Referring Provider Internal Medicine Hematology & Oncology; Visit Provider Internal Medicine Hematology & Oncology
DX: Z51.11 Encounter for antineoplastic chemotherapy (principal); C25.9 Malignant neoplasm of pancreas, unspecified; C79.51 Secondary malignant neoplasm of bone; C79.89 Secondary malignant neoplasm of other specified sites
CPT/HCPCS: 36591; 80053; 85025; 86301; 96360; 96375; 96413; 96417; 96523; 99204; 99211; 99214; J1100; J2405; J9201; J9264

== ENCOUNTER 2019-11-03 13:47 | Emergency (ER) | payer MEDICARE, OTHER, SELFPAY ==
[2019-11-03 13:43] VITALS: BP 155/86; PULSE 93; RESP 15; TEMP 36.4; O2SAT 97; BMI 19.9
--- NOTE | 2019-11-03 13:53 | DI.RAD.S_ITS ---
PROCEDURE: XR LUMBAR SPINE 2-3V INDICATIONS: lower back pain, cancer hx TECHNIQUE: 3 views of the lumbar spine were acquired. COMPARISON: [facility], CR, XR THORACIC SPINE 3V, 11/03/2019, 14:16. Outside Facility, RG, CT ABD / PANCREAS W/WO CON, 08/06/2018, 14:39. [facility], CR, XR LUMBAR SPINE 2-3V, 05/29/2018, 12:35. FINDINGS: Bones: There is a central compression deformity seen of the L2 level, with 30% loss of height centrally. No posterior displacement of fracture fragments can be seen. Although no definite acute features are seen, this is new compared to the outside 2019 CT. No additional fractures are detected. Mild levoconvex scoliotic curvature is noted. No focal AP alignment abnormality is seen. 5 nonrib-bearing, lumbar type vertebral bodies are seen. There is moderate disc space narrowing seen at the L3-L4 level, with mild to moderate disc space narrowing at L4-L5. The disc heights otherwise appear well-preserved. Lower lumbar spine facet arthropathy is seen. Soft tissues: Overlying bowel gas pattern is normal. No suspicious soft tissue calcifications. Retroperitoneal clips are seen. IMPRESSION: There is a 30% central compression deformity seen involving L2, which is new compared to the [address] examination. Given the history, suspicion is raised for pathologic fracture. Please consider a dedicated lumbar spine MRI of the lumbar spine (without and with contrast) for further evaluation (assuming that there is no contraindication). Dictated by: Curtis Johns M.D. on 11/03/2019 at 13:51 Approved by: Curtis Johns M.D. on 11/03/2019 at 13:55
--- NOTE | 2019-11-03 13:55 | ED.BACK ---
HPI - Back Pain/Injury <Danii Hankins, STRESS TEST TECHNICIAN-BC - Last Filed: 11/03/19 17:29> General Chief Complaint: Back Pain/Injury Stated Complaint: Lower back pain Time Seen by Provider: 11/03/19 13:53 Source: patient, family and EMS Mode of arrival: EMS Limitations: no limitations History of Present Illness HPI Narrative: The patient is a 79-year-old male by ambulance and met his at the hospital who presents with a chief complaint of lower back pain. It started on Saturday, 2 days after a new chemotherapy treatment. Patient's states he has pancreatic cancer, patient states he is in treatment ?after a PET scan.He denies any numbness or tingling denies any incontinence of bowel or bladder. He denies any fevers chest pain shortness breath nausea vomiting or diarrhea. He states that his lower back pain radiates around his hips. He states it also goes down the sides of his legs. He did take two tablets of oxycodone this morning instead of one, which she states helps his pain. He also tried Tylenol and his methocarbamol. He denies any falls or trauma. Related Data Home Medications Medication Instructions Recorded Confirmed [id number] [Creon] 1 cap PO TID 05/04/19 10/22/19 lisinopril 40 mg PO DAILY 05/04/19 10/22/19 metformin 1,000 mg BID 05/04/19 10/22/19 omeprazole 20 mg PO BID 05/04/19 10/22/19 simvastatin 60 mg PO BEDTIME 05/04/19 10/22/19 sitagliptin [Januvia] 100 mg PO DAILY 05/04/19 10/22/19 amlodipine 5 mg PO DAILY 10/22/19 10/22/19 aspirin 81 mg PO DAILY 10/22/19 10/22/19 dutasteride 0.5 mg PO DAILY 10/22/19 10/22/19 hyoscyamine sulfate 0.125 mg PO BID-QID PRN 10/22/19 10/22/19 loperamide 2 mg PO Q4H PRN 10/22/19 10/22/19 meloxicam 7.5 mg PO DAILY 10/22/19 10/22/19 tamsulosin 0.4 mg PO DAILY 10/22/19 10/22/19 Previous Rx's Medication Instructions Recorded oxycodone 10 mg PO Q6H PRN #90 tab 10/27/19 cyclobenzaprine 10 mg PO TID PRN #20 tab 11/03/19 lidocaine 1 patch TOP DAILY PRN #15 each 11/03/19 Allergies Allergy/AdvReac Type Severity Reaction Status Date / Time Penicillins Allergy Verified 10/22/19 10:34 Sulfa (Sulfonamide Allergy Verified 10/22/19 10:34 Antibiotics) Review of Systems <LEO Sam - Last Filed: 11/03/19 17:29> Review of Systems Narrative: GENERAL: Denies chills, fatigue, malaise, fever, sweats. HEENT: Denies sinus pain, ear pain, sore throat, difficulty swallowing, dizziness. RESPIRATORY: Denies dyspnea, cough, wheezing, hemoptysis, sputum. CARDIOVASCULAR: Denies chest pain, palpitations, orthopnea, edema, GASTROINTESTINAL: Denies nausea, vomiting, abdominal pain, diarrhea, constipation, melena. : Denies dysuria, frequency, incontinence, hematuria, urinary retention. MUSCULOSKELETAL: See HPI SKIN: Denies rash, skin lesions, or other NEUROLOGIC: Denies weakness, headache, numbness, change in speech, confusion, seizures, incoordination. PSYCHIATRIC: No concerning psychosocial issues. 12 point review of systems is negative except for those stated above Patient History <LEO Sam - Last Filed: 11/03/19 17:29> Medical History Diabetes (Acute) Hyperlipidemia (Acute) Hypertension (Acute) Pancreatic cancer (Acute) Surgical History (Updated 10/22/19 @ 10:54 by Moises Browning MD) History of pancreatic surgery (Acute) Social History Smoking Status: Former smoker (stoppped long time ago. ) alcohol intake: never substance use type: does not use Exam <LEO Sam - Last Filed: 11/03/19 17:29> Narrative Exam Narrative: GENERAL: This is a well-nourished, well-developed patient, no acute distress HEAD: Atraumatic. Normocephalic. No temporal or scalp tenderness. EYES: Pupils equal round and reactive. Extraocular motions intact. No scleral icterus. No injection or drainage. ENT: Nose without bleeding, purulent drainage or septal hematoma. Throat without erythema, tonsillar hypertrophy or exudate. Uvula midline. Airway patent. NECK: Trachea midline. No JVD or lymphadenopathy. Supple, nontender, no meningeal signs. CARDIOVASCULAR: Regular rate and rhythm. RESPIRATORY: Clear to auscultation. Breath sounds equal bilaterally. No wheezes, rales, or rhonchi. No cough. No increased respiratory effort GASTROINTESTINAL: Abdomen soft, non-tender, nondistended. No hepato-splenomegaly, or palpable masses. No guarding. EXTREMITIES: No clubbing, cyanosis, or edema. No joint tenderness, effusion, or edema noted. BACK: Pain to lumbar spine palpation without deformity or crepitance. No flank tenderness. No pain to cervical or thoracic spine palpation NEURO: AOx3. Strength is equal upper and lower extremities bilaterally. No gross cranial nerve deficit. SKIN: No rash or erythema on visible skin. No erythema rash laceration or abrasion noted on lower back. Initial Vital Signs Initial Vital Signs: Vital Signs Temperature 97.5 F L 11/03/19 13:43 Pulse Rate 93 H 11/03/19 13:43 Respiratory Rate 15 11/03/19 13:43 Blood Pressure 155/86 H 11/03/19 13:43 Pulse Oximetry 97 11/03/19 13:43 <Santiago Kang MD - Last Filed: 11/03/19 18:30> Initial Vital Signs Initial Vital Signs: Vital Signs Temperature 97.5 F L 11/03/19 13:43 Pulse Rate 93 H 11/03/19 13:43 Respiratory Rate 15 11/03/19 13:43 Blood Pressure 155/86 H 11/03/19 13:43 Pulse Oximetry 97 11/03/19 13:43 Scores <LEO Sam - Last Filed: 11/03/19 17:29> [facility] [place] coma scale eye opening: Spontaneous [place] coma scale verbal response: Orientated [place] coma scale motor response: Obey commands [place] coma scale total score: 15 Course <LEO Sam - Last Filed: 11/03/19 17:29> Orders Ordered: ED Orders 11/03/19 13:53 XR lumbar spine 2-3V Stat EKG-12 Lead Stat 11/03/19 13:57 XR thoracic spine 3V Stat 11/03/19 14:00 Complete Blood Count AUTO DIFF Stat Comprehensive Metabolic Panel Stat 11/03/19 15:40 Urinalysis Screen (Dip Only) Stat Discontinued Medications Cyclobenzaprine HCl (Flexeril) 10 mg PO NOW ONE Stop: 11/03/19 13:56 Last Admin: 11/03/19 14:01 Dose: 10 mg Documented by: STU Heparin Sodium (Porcine) (Heparin Flush (Port)) 500 unit IV PRN ONE Stop: 11/03/19 16:24 Last Admin: 11/03/19 16:39 Dose: 500 unit Documented by: NICOLAS Sodium Chloride (Normal Saline 0.9%) 1,000 mls @ 1,000 mls/hr IV BOLUS ONE Stop: 11/03/19 14:52 Last Infusion: 11/03/19 16:24 Dose: 0 mls/hr Documented by: Admin: 11/03/19 14:01 Dose: 1,000 mls/hr Documented by: STU Lidocaine (Lidoderm) 1 each TOP NOW ONE Stop: 11/03/19 13:56 Last Admin: 11/03/19 14:01 Dose: 1 each Documented by: STU Vital Signs Vital signs: Vital Signs - 8 hr 11/03/19 13:43 11/03/19 15:02 11/03/19 16:00 Temperature 97.5 F L Pulse Rate 93 H 75 78 Respiratory Rate 15 13 16 Blood Pressure 155/86 H Blood Pressure [Right Arm] 194/87 H 164/71 H Pulse Oximetry 97 96 99 <Santiago Kang MD - Last Filed: 11/03/19 18:30> Orders Ordered: ED Orders 11/03/19 13:53 XR lumbar spine 2-3V Stat EKG-12 Lead Stat 11/03/19 13:57 XR thoracic spine 3V Stat 11/03/19 14:00 Complete Blood Count AUTO DIFF Stat Comprehensive Metabolic Panel Stat 11/03/19 15:40 Urinalysis Screen (Dip Only) Stat Discontinued Medications Cyclobenzaprine HCl (Flexeril) 10 mg PO NOW ONE Stop: 11/03/19 13:56 Last Admin: 11/03/19 14:01 Dose: 10 mg Documented by: STU Heparin Sodium (Porcine) (Heparin Flush (Port)) 500 unit IV PRN ONE Stop: 11/03/19 16:24 Last Admin: 11/03/19 16:39 Dose: 500 unit Documented by: NICOLAS Sodium Chloride (Normal Saline 0.9%) 1,000 mls @ 1,000 mls/hr IV BOLUS ONE Stop: 11/03/19 14:52 Last Infusion: 11/03/19 16:24 Dose: 0 mls/hr Documented by: Admin: 11/03/19 14:01 Dose: 1,000 mls/hr Documented by: STU Lidocaine (Lidoderm) 1 each TOP NOW ONE Stop: 11/03/19 13:56 Last Admin: 11/03/19 14:01 Dose: 1 each Documented by: STU Vital Signs Vital signs: Vital Signs - 8 hr 11/03/19 13:43 11/03/19 15:02 11/03/19 16:00 Temperature 97.5 F L Pulse Rate 93 H 75 78 Respiratory Rate 15 13 16 Blood Pressure 155/86 H Blood Pressure [Right Arm] 194/87 H 164/71 H Pulse Oximetry 97 96 99 MDM - Back Pain/Injury <Danii Hankins, STRESS TEST TECHNICIAN-BC - Last Filed: 11/03/19 17:29> Lab Data Result diagrams: 11/03/19 14:00 11/03/19 14:00 Labs: Lab Results 11/03/19 11/03/19 11/03/19 Range/Units 14:00 14:00 15:40 WBC 3.1 L (4.5-11.0) X10^3/uL RBC 3.66 L (4.5-5.9) X10^6/uL Hgb 11.4 L (13.5-17.5) g/dL Hct 33.1 L (41-53) % MCV 90.5 (80-100) fL MCH 31.1 (26-34) PG MCHC 34.4 (30-36) % RDW 13.6 (11.6-14.8) % Plt Count 214 (150-400) X10^3/uL Neut % (Auto) 65.4 (50-75) % Lymph % (Auto) 30.0 (25-40) % [place] % (Auto) 1.9 L (3-14) % Eos % (Auto) 2.0 (2-4) % Baso % (Auto) 0.7 (0-2) % Neut # (Auto) 2000 (4872-0869) /uL Lymph # (Auto) 900 L (4002-7459) /uL [place] # (Auto) 100 (0-900) /uL Eos # (Auto) 100 (0-450) /uL Baso # (Auto) 0 (0-100) /uL Sodium 135 L (137-145) mmol/L Potassium 3.5 (3.4-5.1) mmol/L Chloride 105 (98-107) mmol/L Carbon Dioxide 23 (22-32) mmol/L BUN 16 (9-20) mg/dL Creatinine 0.53 L (0.66-1.25) mg/dL Estimated GFR > 60.0 (>60) mL/min BUN/Creatinine Ratio 30.2 H (6-22) Glucose 128 H (80-110) mg/dL Calcium 8.8 (8.4-10.2) mg/dL Total Bilirubin 0.6 (0.2-1.3) mg/dL AST 21 (17-59) IU/L ALT 14 (<50) IU/L Alkaline Phosphatase 57 (38-126) U/L Total Protein 6.6 (6.3-8.2) g/dL Albumin 3.5 (3.5-5.0) g/dL Globulin 3.1 (1.7-4.1) g/dL Albumin/Globulin Ratio 1.1 (1.0-2.8) Urine Color Yellow Urine Appearance Clear Urine pH 6.0 (4.5-8.0) Ur Specific [place] 1.020 (1.000-1.035) Urine Protein 2+ H (Negative) Urine Glucose (UA) Negative (Negative) g/dL Urine Ketones Trace H (NEGATIVE) Urine Occult Blood Negative (Negative) Urine Nitrate Negative (Negative) Urine Bilirubin Negative (NEGATIVE) Urine Urobilinogen 0.2 (0.2) E.U./dL Ur Leukocyte Esterase Negative (NEGATIVE) Imaging Data Thoracic spine x-ray: Radiologist's Impression: Radiologist impression: No significant plain film abnormality is seen for age Lumbar x-ray: Radiologist's Impression: Radiologist impression: For 30% central compression deformity seen involving L2 which is new compared to [address] Given history suspicion is raise for pathologic fracture ECG Data Attestation: I personally reviewed and interpreted this ECG as follows: Interpretation: Sinus rhythm. Ventricular rate 96. P.r. interval 154. QRS 103. Viewed by Dr Pearl ANDERSON Narrative Medical decision making narrative: The patient is a 79-year-old male with history of cancer presents with a chief complaint of lower back pain. His lumbar x-ray is concerning for a 30% central compression deformity involving L2, this is seen [facility]. The patient has no red flag symptoms of incontinence bowel, incontinence of bladder saddle anesthesia. He states that understanding of these are return precautions. He feels much improved after the above-stated therapies, is able to walk around the department with ease. I discussed at length coming back to the emergency department for any acute concerns as well as follow-up with primary care provider and oncologist. Patient and have no questions or concerns upon discharge and state understanding return precautions as well as follow-up care. <Santiago Kang MD - Last Filed: 11/03/19 18:30> Lab Data Labs: Lab Results 11/03/19 11/03/19 11/03/19 Range/Units 14:00 14:00 15:40 WBC 3.1 L (4.5-11.0) X10^3/uL RBC 3.66 L (4.5-5.9) X10^6/uL Hgb 11.4 L (13.5-17.5) g/dL Hct 33.1 L (41-53) % MCV 90.5 (80-100) fL MCH 31.1 (26-34) PG MCHC 34.4 (30-36) % RDW 13.6 (11.6-14.8) % Plt Count 214 (150-400) X10^3/uL Neut % (Auto) 65.4 (50-75) % Lymph % (Auto) 30.0 (25-40) % [place] % (Auto) 1.9 L (3-14) % Eos % (Auto) 2.0 (2-4) % Baso % (Auto) 0.7 (0-2) % Neut # (Auto) 2000 (8318-0517) /uL Lymph # (Auto) 900 L (8685-9785) /uL [place] # (Auto) 100 (0-900) /uL Eos # (Auto) 100 (0-450) /uL Baso # (Auto) 0 (0-100) /uL Sodium 135 L (137-145) mmol/L Potassium 3.5 (3.4-5.1) mmol/L Chloride 105 (98-107) mmol/L Carbon Dioxide 23 (22-32) mmol/L BUN 16 (9-20) mg/dL Creatinine 0.53 L (0.66-1.25) mg/dL Estimated GFR > 60.0 (>60) mL/min BUN/Creatinine Ratio 30.2 H (6-22) Glucose 128 H (80-110) mg/dL Calcium 8.8 (8.4-10.2) mg/dL Total Bilirubin 0.6 (0.2-1.3) mg/dL AST 21 (17-59) IU/L ALT 14 (<50) IU/L Alkaline Phosphatase 57 (38-126) U/L Total Protein 6.6 (6.3-8.2) g/dL Albumin 3.5 (3.5-5.0) g/dL Globulin 3.1 (1.7-4.1) g/dL Albumin/Globulin Ratio 1.1 (1.0-2.8) Urine Color Yellow Urine Appearance Clear Urine pH 6.0 (4.5-8.0) Ur Specific [place] 1.020 (1.000-1.035) Urine Protein 2+ H (Negative) Urine Glucose (UA) Negative (Negative) g/dL Urine Ketones Trace H (NEGATIVE) Urine Occult Blood Negative (Negative) Urine Nitrate Negative (Negative) Urine Bilirubin Negative (NEGATIVE) Urine Urobilinogen 0.2 (0.2) E.U./dL Ur Leukocyte Esterase Negative (NEGATIVE) Discharge Plan Departure Patient Disposition: Home Clinical Impression: Lumbar back pain Discharge Date/Time: 11/03/19 17:10 Instructions: DI for Low Back Pain, DI for Muscle Strain, DI for Back Strain or Sprain Activity Restrictions/Additional Instructions: Thank you for trusting us with your care today. Your x-rays do not show any new findings, but again show the compression of lumbar 2 that was shown on her previous scans. I am glad that your pain is feeling better. I sent 2 prescriptions to [facility] [place]. This includes a muscle relaxer as well as lidocaine patches.. Please come back to the emergency department for any acute concerns. This includes incontinence of bowel, incontinence of bladder, numbness in your groin. Please follow-up with your oncologist as well as your primary care provider Prescriptions: New cyclobenzaprine 10 mg tablet 10 mg PO TID PRN (Reason: muscle spasm) Qty: 20 RF: 0 lidocaine 5 % adhesive patch,medicated 1 patch TOP DAILY PRN (Reason: pain) Qty: 15 RF: 0 No Action simvastatin 20 mg tablet 60 mg PO BEDTIME RF: 0 omeprazole 20 mg capsule,delayed release(DR/EC) 20 mg PO BID RF: 0 lisinopril 40 mg tablet 40 mg PO DAILY RF: 0 Januvia 100 mg tablet 100 mg PO DAILY RF: 0 Creon 24,000-76,000 -120,000 unit capsule,delayed release(DR/EC) 1 cap PO TID RF: 0 metformin 500 mg tablet 1,000 mg BID RF: 0 loperamide 2 mg Capsule 2 mg PO Q4H PRN (Reason: Constipation) RF: 0 amlodipine 5 mg Tablet 5 mg PO DAILY RF: 0 meloxicam 7.5 mg Tablet 7.5 mg PO DAILY RF: 0 tamsulosin 0.4 mg Capsule 0.4 mg PO DAILY RF: 0 hyoscyamine sulfate 0.125 mg Tablet 0.125 mg PO BID-QID PRN (Reason: Cramps) RF: 0 dutasteride 0.5 mg Capsule 0.5 mg PO DAILY RF: 0 aspirin 81 mg Tablet,Chewable 81 mg PO DAILY RF: 0 oxycodone 10 mg Tablet 10 mg PO Q6H PRN (Reason: cancer related pain) Qty: 90 RF: 0 Referrals: Eulalio Crawford MD [Primary Care Provider] - <Santiago Kang MD - Last Filed: 11/03/19 18:30> [facility] I was immediately available in the department for consultation. This documentation has been reviewed and I agree with assessment and plan. Supervised by Santiago Kang MD
--- NOTE | 2019-11-03 13:57 | DI.RAD.S_ITS ---
PROCEDURE: XR THORACIC SPINE 3V INDICATIONS: pain, hx ca TECHNIQUE: 3 views of the thoracic spine were acquired. COMPARISON: [facility], CT, CT CHEST W CON, 08/07/2018, 16:06. [facility], CR, XR CHEST 2V, 11/17/2018, 8:57. [facility], CR, XR LUMBAR SPINE 2-3V, 11/03/2019, 14:16. FINDINGS: Bones: No fractures or dislocations. No suspicious bony lesions. 12 pairs of ribs are noted, and appear intact where visualized. Age-appropriate bony degenerative changes are seen. Soft tissues: No paravertebral stripe thickening. The cardiac contours are within normal limits. The aorta demonstrates calcification and tortuosity. IMPRESSION: No significant plain film abnormality is seen for age. Dictated by: Curtis Johns M.D. on 11/03/2019 at 13:55 Approved by: Curtis Johns M.D. on 11/03/2019 at 13:56
[2019-11-03] MEDS: CYCLOBENZAPRINE 10 MG TABLET PO (14:01)
[2019-11-03] MEDS: SODIUM CHLORIDE 0.9% 1,000 ML 1000 ML IV (14:01)
[2019-11-03] MEDS: LIDOCAINE PATCH 1 EACH ADH..PATCH TOP (14:01)
[2019-11-03 14:14] LABS: Add Manual Diff / Slide Review NO; Basophils Absolute Auto 0 /uL (0-100); Basophils Percent Auto 0.7 % (0-2); Eosinophils Absolute Auto 100 /uL (0-450); Hematocrit 33.1 % (41-53); Hemoglobin 11.4 g/dL (13.5-17.5); Lymphocytes Absolute Auto 900 /uL (1100-4500); Mean Corpuscular HGB Conc 34.4 % (30-36); Mean Corpuscular Hemoglobin 31.1 PG (26-34); Mean Corpuscular Volume 90.5 fL (80-100); Monocytes Absolute Auto 100 /uL (0-900); Monocytes Percent Auto 1.9 % (3-14); Neutrophils Absolute Auto 2000 /uL (1500-7000); Neutrophils Percent Auto 65.4 % (50-75); Platelet Count 214 X10^3/uL (150-400); Red Blood Cell Count 3.66 X10^6/uL (4.5-5.9); Red Cell Distribution Width 13.6 % (11.6-14.8); White Blood Cell Count 3.1 X10^3/uL (4.5-11.0)
[2019-11-03 14:28] LABS: Alanine Aminotransferase 14 IU/L (<50); Albumin 3.5 g/dL (3.5-5.0); Albumin Globulin Ratio 1.1 (1.0-2.8); Alkaline Phosphatase 57 U/L (38-126); Aspartate Aminotransferase 21 IU/L (17-59); BUN Creatinine Ratio 30.2 (6-22); Bilirubin Total 0.6 mg/dL (0.2-1.3); Blood Urea Nitrogen 16 mg/dL (9-20); Calcium 8.8 mg/dL (8.4-10.2); Carbon Dioxide 23 mmol/L (22-32); Chloride 105 mmol/L (98-107); Estimated Glomerular Filt Rate > 60.0 mL/min (>60); Globulin 3.1 g/dL (1.7-4.1); Glucose 128 mg/dL (80-110); HEMOLYSIS < 15 (0-50); Potassium 3.5 mmol/L (3.4-5.1); Sodium 135 mmol/L (137-145); Total Protein 6.6 g/dL (6.3-8.2)
[2019-11-03 15:02] VITALS: BP 194/87; PULSE 75; RESP 13; O2SAT 96
[2019-11-03 15:54] LABS: Appearance Urine UA CLEAR; Bilirubin Urine UA NEGATIVE (NEGATIVE); Color Urine UA YELLOW; Glucose Urine UA NEGATIVE (Negative); Ketones Urine UA TRACE (NEGATIVE); Leukocyte Esterase Urine UA NEGATIVE (NEGATIVE); Nitrite Urine UA NEGATIVE (Negative); Occult Blood Urine UA NEGATIVE (Negative); Protein Urine UA 2+ (Negative); Urobilinogen Urine UA 0.2 E.U./dL (0.2)
[2019-11-03 16:00] VITALS: BP 164/71; PULSE 78; RESP 16; O2SAT 99
--- NOTE | 2019-11-03 16:24 | PC.NURSE ---
Steady Gait to bathroom.
== END 2019-11-03 17:10 | disposition home or self-care (01) ==
PROVIDERS: Emergency Provider Nurse Practitioner Family; PCP Family Medicine
DX: M54.5 Low back pain (principal); C25.9 Malignant neoplasm of pancreas, unspecified
CPT/HCPCS: 36415; 72072; 72100; 80053; 81003; 85025; 93005; 96360; 96361; 99284; J1642